=== PATIENT | female | born 1985 | race Caucasian/White ===

== ENCOUNTER 2016-06-03 00:10 | Inpatient (IN) | payer OTHER ==
[2016-06-03] VITALS (42 sets, daily range): BP systolic 109–157; BP diastolic 56–90
[~2016-06-03] VITALS: Ht 162.6 cm; Wt 88.6 kg
[2016-06-03] MEDS ORDERED: OXYTOCIN INJ 20 UNIT in NS 1000ml 1,000 ML IV PRN ×2 (00:50→01:15)
[2016-06-03] MEDS ORDERED: SODIUM CHLORIDE FLUSH 3 ML SYR IV PRN ×2 (00:50→01:15)
[2016-06-03] MEDS ORDERED: MISOPROSTOL 25 MCG (CYTOTEC) TABLET PO ONE ×2 (00:50)
[2016-06-03] MEDS ORDERED: CALCIUM CARBONATE CHEWABLE 300 MG (TUMS) TABLET PO PRN ×2 (00:50→01:15)
--- OUTSIDE RECORDS SUMMARY | 2016-06-03 01:17 | XMS REPORT | Continuity of Care Document ---
Author Author [facility] Address Unknown Phone Unavailable Care Team Providers Care Digital Advertising Analyst Name Role Phone ISABEL GONSALEZ MD PCP [phone] Insurance Providers Payer Name Policy Number Subscriber Name Relationship [facility] [id number] Alma Rogers 18 Self / Same As Patient Problems Active Problems Medical Problem Onset Date Status 36 to 37 weeks gestation of Unknown Acute Hypertension affecting Unknown Acute Medications No medication information available. Social History Query Response Start Date Stop Date Smoking Status Never smoker Hospital Discharge Instructions Current inpatient/outpatient. Discharge instructions are currently unavailable. Plan of Care Prescriptions Functional Status No functional status results. Allergies, Adverse Reactions, Alerts No known allergies. Immunizations No immunization records. Vital Signs Acute Vital Signs Vital Response Date/Time Temperature (Fahrenheit) 97.6 05/20/2016 9:00pm Pulse 73 bpm 05/20/2016 10:50pm Respirations 16 05/20/2016 10:50pm Results Laboratory Results Test Name Result Units Flags Reference Collection Date/Time Result Date/ Time Comments White Blood Count 8.01 10^3uL 4.0-11.0 05/20/2016 9:50pm 05/20/2016 10: 13pm Red Blood Count 3.71 10^6uL L 4.00-5.00 05/20/2016 9:50pm 05/20/2016 10: 13pm Hemoglobin 11.4 g/dL L 12.0-15.5 05/20/2016 9:50pm 05/20/2016 10:13pm Hematocrit 32.40 % L 35.00-45.00 05/20/2016 9:50pm 05/20/2016 10:13pm Mean Corpuscular Volume 87 FL 80-100 05/20/2016 9:50pm 05/20/2016 10: 13pm Mean Corpuscular Hemoglobin 30.7 PG 26.0-34.0 05/20/2016 9:50pm 2015 10:13pm Mean Corpuscular Hemoglobin Concent 35.2 g/dL 31.0-37.0 05/20/2016 9: 50pm 05/20/2016 10:13pm Red Cell Distribution Width 13.4 % 11.8-15.6 05/20/2016 9:50pm 2015 10:13pm Platelet Count 142 10^3uL L 150-450 05/20/2016 9:50pm 05/20/2016 10: 13pm Mean Platelet Volume 11.9 FL H 6.0-9.5 05/20/2016 9:50pm 05/20/2016 10: 13pm Neutrophils (%) (Auto) 76 % H 51-67 05/20/2016 9:50pm 05/20/2016 10: 13pm Lymphocytes (%) (Auto) 13 % L 20-46 05/20/2016 9:50pm 05/20/2016 10: 13pm Monocytes (%) (Auto) 9 % 3-11 05/20/2016 9:50pm 05/20/2016 10:13pm Eosinophils (%) (Auto) 1 % 0-4 05/20/2016 9:50pm 05/20/2016 10:13pm Basophils (%) (Auto) 0 % 0-2 05/20/2016 9:50pm 05/20/2016 10:13pm Neutrophils # (Auto) 6.1 X10^3 05/20/2016 9:50pm 05/20/2016 10:13pm Lymphocytes # (Auto) 1.1 X10^3 05/20/2016 9:50pm 05/20/2016 10:13pm Monocytes # (Auto) 0.7 X10^3 05/20/2016 9:50pm 05/20/2016 10:13pm Eosinophils # (Auto) 0.1 10^3uL 05/20/2016 9:50pm 05/20/2016 10:13pm Basophils # (Auto) 0.0 10^3uL 05/20/2016 9:50pm 05/20/2016 10:13pm Volume Urine Centrifuged 12 mL 05/20/2016 9:50pm 05/20/2016 10: 17pm Urine Collection Type CLEAN CATCH 05/20/2016 9:50pm 05/20/2016 10: 17pm Urine Color Dark Yellow 05/20/2016 9:50pm 05/20/2016 10:16pm Urine Clarity Slightly Cloudy 05/20/2016 9:50pm 05/20/2016 10:16pm Urine pH 6.5 5.0 - 8.0 05/20/2016 9:50pm 05/20/2016 10:16pm Urine Specific [place] 1.025 1.005-1.030 05/20/2016 9:50pm 2015 10:16pm Urine Protein Trace H Negative 05/20/2016 9:50pm 05/20/2016 10:16pm Urine Glucose (UA) Negative Negative 05/20/2016 9:50pm 05/20/2016 10: 16pm Urine RBC (Auto) Negative Negative 05/20/2016 9:50pm 05/20/2016 10: 16pm Urine Ketones 1+ H Negative 05/20/2016 9:50pm 05/20/2016 10:16pm Urine Nitrite Negative Negative 05/20/2016 9:50pm 05/20/2016 10:16pm Urine Bilirubin Negative Negative 05/20/2016 9:50pm 05/20/2016 10: 16pm Urine Urobilinogen 0.2 mg/dL 0.2-1.0 05/20/2016 9:50pm 05/20/2016 10: 16pm Urine Leukocyte Esterase Negative Negative 05/20/2016 9:50pm 2015 10:16pm Urine RBC 0-2 /HPF 05/20/2016 9:50pm 05/20/2016 10:17pm Urine WBC 0-2 /HPF 05/20/2016 9:50pm 05/20/2016 10:17pm Urine Bacteria None Seen /HPF 05/20/2016 9:50pm 05/20/2016 10:17pm Urine Squamous Epithelial Cells >100 /LPF 05/20/2016 9:50pm 2015 10:17pm Urine Mucus 1+ 05/20/2016 9:50pm 05/20/2016 10:17pm Urine Calcium Oxalate Crystals 2+ /HPF H 05/20/2016 9:50pm 05/20/2016 10:17pm N/A 24 Hr 05/21/2016 9:30am 05/22/2016 3:08pm N/A RANDOM mL 05/21/2016 9:30am 05/22/2016 3:08pm Sodium Level 138 mmol/L 135-150 05/20/2016 9:50pm 05/20/2016 10:20pm Potassium Level 3.5 mmol/L 3.5-5.1 05/20/2016 9:50pm 05/20/2016 10: 20pm Chloride Level 106 mmol/L 98-108 05/20/2016 9:50pm 05/20/2016 10:20pm Carbon Dioxide Level 22 mmol/L 22-29 05/20/2016 9:50pm 05/20/2016 10: 20pm Anion Gap 13.0 MEQ/L 3-15 05/20/2016 9:50pm 05/20/2016 10:20pm Blood Urea Nitrogen 8 mg/dL 7-05/20/2016 9:50pm 05/20/2016 10:20pm Creatinine 0.60 mg/dL 0.6-1.2 05/20/2016 9:50pm 05/20/2016 10:20pm BUN/Creatinine Ratio 13 10-05/20/2016 9:50pm 05/20/2016 10:20pm Estimat Glomerular Filtration Rate 140.2 05/20/2016 9:50pm 2015 10:20pm Estimated GFR (Non- 115.9 05/20/2016 9:50pm 2015 10:20pm Glucose Level 103 mg/dL 70-110 05/20/2016 9:50pm 05/20/2016 10:20pm Calculated Osmolality 265 mosm/L L 280-300 05/20/2016 9:50pm 05/20/2016 10:20pm Calcium Level 8.2 mg/dL L 8.8-10.8 05/20/2016 9:50pm 05/20/2016 10:20pm Calcium/Ionized Calcium Ratio 4.1 mg/dL 3.8-4.6 05/20/2016 9:50pm 05/20 10:20pm Total Bilirubin 0.4 mg/dL 0.1-1.0 05/20/2016 9:50pm 05/20/2016 10:20pm Alkaline Phosphatase 122 U/L 38-126 05/20/2016 9:50pm 05/20/2016 10: 20pm Aspartate Amino Transf (AST/SGOT) 30 U/L 15-37 05/20/2016 9:50pm 2015 10:20pm Alanine Aminotransferase (ALT/SGPT) 28 U/L L 30-65 05/20/2016 9:50pm 10:20pm Total Protein 5.6 g/dL L 6.4-8.5 05/20/2016 9:50pm 05/20/2016 10:20pm Albumin 3.1 g/dL L 3.4-5.0 05/20/2016 9:50pm 05/20/2016 10:20pm Albumin/Globulin Ratio 1.240 1.1-1.8 05/20/2016 9:50pm 05/20/2016 10: 20pm Urine Microalbumin 24 Hour NA mg/24hr 0.0-29.0 05/21/2016 9:30am 2015 3:08pm Reference ranges are based on a 24 hour urine collection. Results are reported as mg/hrs collected. Urine Albumin (%) 0.5 mg/dL 0.0-1.7 05/21/2016 9:30am 05/22/2016 2: 55pm Pending Laboratory Results Test Name Collection Date/Time Procedures No known history of procedures. Encounters Encounter Location Arrival/Admit Date Discharge/Depart Date Attending Provider Registered Referred [facility] 05/21/16 9:51am ISABEL GONSALEZ MD Departed Clinic [facility] 05/20/16 8:41pm 05/20/16 10:50pm ISABEL GONSALEZ MD
[2016-06-03 01:27] LABS: MEAN PLATELET VOLUME 12.4 FL (6.0-9.5); WHITE BLOOD COUNT 7.43 10^3uL (4.0-11.0)
[2016-06-03] MEDS ORDERED: MISOPROSTOL 25 MCG (CYTOTEC) TABLET ONE (01:27)
[2016-06-03 01:35] LABS: BILIRUBIN,URINE Negative (Negative); CLARITY,URINE Clear; COLOR,URINE Yellow; GLUCOSE, URINE (UA) Negative (Negative); LEUKOCYTE ESTERASE, URINE Negative (Negative); UROBILINOGEN,URINE 0.2 mg/dL (0.2-1.0)
[2016-06-03 01:44] LABS: ALBUMIN 3.2 g/dL (3.4-5.0); CALCULATED IONIZED CALCIUM 4.7 mg/dL (3.8-4.6); TOTAL PROTEIN 5.6 g/dL (6.4-8.5)
[2016-06-03 01:45] LABS: RBC,URINE 0-2 /HPF; URINE CENTRIFUGED VOLUME 12 mL
[2016-06-03] MEDS ORDERED: HYDROcodone/APAP 5 MG/325 MG (NORCO) TAB PO ONE (02:00)
[2016-06-03] MEDS ORDERED: OXYTOCIN INJ 20 UNIT in NS 1000ml 1,000 ML SCH (06:50)
[2016-06-03] MEDS ORDERED: ROPIVACAINE 1% 10 MG/ML (NAROPIN) 20 ML AMPUL ONE (08:52)
--- NOTE | 2016-06-03 11:17 | History and Physical (E) ---
History & Physical (OB) Subjective: CC: Elevated blood pressure 31 year old at 38 0/7 weeks gestation presented last night with elevated blood pressures. She has a history of chronic hypertension, but has been normotensive for the . This was achieved with Clomid. She started to get a headache last night, and checked her BP and it was 170/100. After 10 minutes of rest, it had gone down to 140/90, but I still advised she come in for evaluation. She took tylenol at home, but this did not relieve the headache. Her pressures remained elevated, so induction was started. She was 1cm on presentation and paty mildly every 2-4 minutes. 25mcg cytotec was placed at 23:00, and pitocin was started at 07:00. PNC: Nasrin OB Hx: VAVD x1, SVDx1 both at term, both induced at 38 weeks for HTN. Both pregnancies achieved with Clomid. PMHx: HTN PSHx: , homemaker. No tob/alc/ILD Allergies: Coded Allergies: No Known Drug Allergies (Unverified , 05/20/16) Objective: Vital Signs Date Time Temp Pulse Resp B/P Pulse Ox O2 Delivery O2 Flow Rate FiO2 06/03/16 08:11 97.7 74 126/74 06/03/16 01:00 16 Room air Laboratory Results Past 24 Hrs 06/03/16 00:10: Alanine Aminotransferase (ALT/SGPT) 28, Albumin 3.2, Albumin/Globulin Ratio 1.333, Alkaline Phosphatase 140, Anion Gap 14.0, Aspartate Amino Transf (AST/ SGOT) 34, BUN/Creatinine Ratio 14, Blood Urea Nitrogen 9, Calcium Level 9.4, Calcium/Ionized Calcium Ratio 4.7, Calculated Osmolality 262, Carbon Dioxide Level 21, Chloride Level 105, Creatinine 0.66, Estimat Glomerular Filtration Rate 125.6, Estimated GFR (Non- 103.8, Glucose Level 99, Hematocrit 32.80, Hemoglobin 11.8, Mean Corpuscular Hemoglobin 31.0, Mean Corpuscular Hemoglobin Concent 36.0, Mean Corpuscular Volume 86, Mean Platelet Volume 12.4, Platelet Count 141, Potassium Level 3.7, Red Blood Count 3.81, Red Cell Distribution Width 13.1, Sodium Level 136, Total Bilirubin 0.5, Total Protein 5.6, White Blood Count 7.43 06/03/16 00:30: Urine Bacteria Rare, Urine Bilirubin Negative, Urine Blood Trace-intact, Urine Clarity Clear, Urine Collection Type Clean catch, Urine Color Yellow, Urine Glucose (UA) Negative, Urine Ketones Negative, Urine Leukocyte Esterase Negative , Urine Microscopic WBC None seen, Urine Nitrite Negative, Urine Protein Negative, Urine RBC 0-2, Urine Specific [place] 1.015, Urine Squamous Epithelial Cells >100, Urine Urobilinogen 0.2, Urine pH 7.0, Volume Urine Centrifuged 12 ml General: Alert and oriented, NAD Chest: CTA Abdomen: Gravid Cardiovasular: RRR, No murmur Extremities: No edema FHT's: 140s, moderately reactive, no accels, no decels Cat II Cvx: 5/50/ballotable [place]: Q2.5-4 min Screenings: Blood type: A Positive, Rubella Immune, RPR non-reactive, HBV Negative, HIV Negative , GBS Negative. Problems/Plans: (1) 38 weeks gestation of Assessment & Plan: Bedside sono done to confirm presentation since her check is so ballotable, and baby is vertex. Will continue with pit augment. If head applies better, will proceed with AROM. Epidural placed and she is comfortable. (2) Hypertension affecting Additional Copies to: End of Report . ISABEL GONSALEZ MD Jun 03, 2016 11:17
--- NOTE | 2016-06-03 11:32 | Progress Note (E) ---
Progress Note AROM performed at 11:25 with copious amounts of clear fluid returned. Head finally applied to the cervix after fluid was released. FHT remain 140s, Cat II. ISABEL GONSALEZ MD Jun 03, 2016 11:32
[2016-06-03 11:59] LABS: BILIRUBIN,URINE Negative (Negative); CLARITY,URINE Clear; COLOR,URINE Yellow; GLUCOSE, URINE (UA) Negative (Negative); LEUKOCYTE ESTERASE ,URINE Negative (Negative); UROBILINOGEN,URINE 0.2 mg/dL (0.2-1.0)
[2016-06-03 12:05] LABS: RBC,URINE 0-2 /HPF; URINE CENTRIFUGED VOLUME 10 mL
[2016-06-03] MEDS ORDERED: LANOLIN OINTMENT 28 GM TUBE TOP PRN (19:20)
[2016-06-03] MEDS ORDERED: HYDROcodone/APAP 5 MG/325 MG (NORCO) TAB PO PRN (19:20)
[2016-06-03] MEDS ORDERED: IBUPROFEN 600 MG (MOTRIN) TAB PO PRN (19:20)
[2016-06-03] MEDS ORDERED: DOCUSATE SODIUM 100 MG (COLACE) CAP PO SCH (21:00)
[2016-06-04 08:51] VITALS: BP 130/88
--- NOTE | 2016-06-04 13:42 | Vaginal Delivery Summary (E) ---
Vaginal Delivery Summary At 19:00 on 06/03/16 this 31 year old G3 now P3 spontaneously delivered a viable male at 38 weeks gestation under epidural anesthesia over intact perineum. The patient presented for care at 9 weeks and ultrasound at that time confirmed dates. This complications: Chronic hypertension, normotensive during the until today, and infertility, achieved with Clomid. Maternal labs: Blood type: A Positive, Hgb 12.5, Rubella Immune, RPR non- reactive, HBV Negative, HIV Negative , GBS Negative. Tdap booster received on . Flu booster received on 04/03/2016. She presented for elevated blood pressure and headache. At presentation, she was 1 cm dilated. Induction was started with 25mcg cytotec at 23:30 last night, and she progressed to 4cm by 06:30. Pitocin was then started, and brought up to a maximum dose of 15mu. On 06/03/16 at 11:20, AROM was performed by Dr. Alexandra with copious amounts of Clear fluid returned. Epidural was placed at 10:00, with good pain relief. She pushed for approximately 25 minutes. The head presented occiput anterior and delivered easily, followed by the anterior shoulder. The posterior shoulder and the body followed in a controlled fashion and baby was placed on mom's abdomen. The cord was allowed to stop pulsing and then clamped x2 by me and cut by father of the baby. The placenta then delivered spontaneously and intact, with 3 vessel cord noted. The pitocin bag was run in. There was a minor perineal abrasion, but nothing requiring repair. There were no other lacerations. A left-sided vaginal cyst was noted, but patient reported it did not bother her, so it was left alone. There was slightly heavier flow than I liked, so I did an MEU with a few chorion fragments returned, and the flow slowed. Estimated blood loss 100 ml. weight 9 pounds 2 ounces, 4130 grams. Apgars 9 and 9. Both mom and baby are stable at this time. ISABEL ALEXANDRA MD Jun 03, 2016 19:29
[2016-06-04] MEDS ORDERED: DOCU100C8 PO (14:44)
[2016-06-04] MEDS ORDERED: IBUP-1772 PO (14:44)
[2016-06-04] MEDS ORDERED: LANO28OI TOP (14:44)
--- NOTE | 2016-06-04 14:46 | Progress Note (E) ---
Post- Progress Note Subjective: Doing well. Ambulating, voiding. Tolerating full diet. Nursing going well. Pain minimal. Lochia moderate. Objective: Vital Signs Date Time Temp Pulse Resp B/P Pulse Ox O2 Delivery O2 Flow Rate FiO2 06/04/16 08:51 97.2 80 16 130/88 Room air I & O 06/03/16 06/04/16 19:00 07:00 Intake Total 2402 ml 3300 ml Output Total 1400 ml Balance 1002 ml 3300 ml Laboratory Tests 06/04/16 07:50: Hematocrit 29.30, Hemoglobin 10.3 Blood type: A Positive, Current Medications Ibuprofen (Motrin) 600 mg Q6H PRN PO Last administered on 06/03/16at 21:09; Admin Dose 600 MG; Start 06/03/16 at 19:20 Docusate Sodium (Colace Cap) 100 mg HS PO Last administered on 06/03/16at 21:27 ; Admin Dose 100 MG; Start 06/03/16 at 21:00 Lanolin (Lanolin Ointment) 28 gm PRN PRN TOP; Start 06/03/16 at 19:20 Acetaminophen/ Hydrocodone Bitart ([place] 5 Mg/325 Mg) Total acetaminophen not... Q4H PRN PO; Start 06/03/16 at 19:20 General: Alert and oriented, NAD Abdomen: Soft, non-distended, fundus firm Extremities: No edema Problems/Plans: (1) Normal vaginal delivery Assessment & Plan: Discharge this evening. Follow up in 6 weeks. (2) Hypertension affecting ISABEL GONSALEZ MD Jun 04, 2016 13:44
--- NOTE | 2016-06-04 19:32 | NUR ---
All dismissal instructions completed by Romie Ramirez RN, pt dismissed ambulatory accompanied by staff and spouse.
== END 2016-06-04 19:30 | disposition home or self-care (01) | DRG 774 ==
LOC: OBGOP 00:10 → OB 00:10 → OBGOP 00:55 → OB 01:13
PROVIDERS: ADMIT Family Medicine; ATTEND Family Medicine
PROC: 3E0P7GC Introduction of Other Therapeutic Substance into Female Reproductive, Via Natural or Artificial Opening (ICD-10-PCS; principal; 2016-06-02)
PROC: 10E0XZZ Delivery of Products of Conception, External Approach (ICD-10-PCS; 2016-06-03)
DX: O10.92 Unspecified pre-existing hypertension complicating childbirth (principal); Z3A.38 38 weeks gestation of pregnancy; Z37.0 Single live birth
CPT/HCPCS: 36415; 80053; 81003; 81015; 85014; 85018; 85027; 86850; 86900; 86901; 99202